=== PATIENT | male | born 1970 | race Caucasian/White ===

== ENCOUNTER 2017-01-14 10:43 | Day surgery (SDC) | payer OTHER ==
[~2017-01-14] VITALS: Ht 177.8 cm; Wt 103.0 kg
[~2017-01-14 10:43] MED LIST: IV RINGERS,LACTATED 1000ML 1,000 ML IV SCH; LIDOCAINE 1% PF 2 ML VIAL. ID PRN; ONDANSETRON PF 4 MG/2 ML VIAL. IV PRN; PROCHLORPERAZINE 10 MG/2 ML VIAL. IV PRN; fentaNYL PF VIAL 100 MCG/2 ML VIAL IV PRN
[2017-01-14] MEDS ORDERED: LOSA50TA6 PO (11:01)
[2017-01-14] MEDS ORDERED: ATOR40TA PO (11:02)
[2017-01-14] MEDS ORDERED: ONDANSETRON PF 4 MG/2 ML VIAL. ONE (11:29)
[2017-01-14] MEDS ORDERED: LIDOCAINE 2% PF Vial for OR 5 ML VIAL. ONE (11:29)
[2017-01-14] MEDS ORDERED: DEXAMETHASONE SOD PHOS 20 MG/5 ML VIAL. ONE (11:29)
[2017-01-14] MEDS ORDERED: PROPOFOL 20 ML IV ONE (11:29)
[2017-01-14] MEDS ORDERED: MIDAZOLAM HCL/PF 2 MG/2 ML VIAL. ONE (11:30)
[2017-01-14] MEDS ORDERED: fentaNYL PF VIAL 250 MCG/5 ML VIAL ONE (11:30)
[2017-01-14] MEDS ORDERED: BUPIVACAINE-EPI 0.25%-1:200000 MPF 30 ML VIAL. ONE (12:09)
[2017-01-14] MEDS ORDERED: NEOSTIGMINE METHYLSULFATE 5 MG/5 ML SYRINGE. ONE (13:43)
[2017-01-14] MEDS ORDERED: GLYCOPYRROLATE 1 MG/5 ML VIAL. ONE (13:44)
[2017-01-14] MEDS ORDERED: ROCURONIUM 100 MG/10 ML VIAL. ONE (14:17)
--- NOTE | 2017-01-14 14:36 | PDOC4 ---
Operative Note Operative Note Date: 01/14/2017 Preoperative diagnosis: Incarcerated umbilical hernia Postoperative diagnosis: Same Procedure: Robotic-assisted laparoscopic umbilical hernia repair with mesh Surgeon: Nacho Specimen: None Dictation: Patient is a 46-year-old male who's had increasingly enlarging umbilical hernia with pain procedure of robotic-assisted laparoscopic umbilical hernia repair with mesh was explained to the patient detail was benefits were also discussed including bleeding infection injury to intra-abdominal contents possibly necessitating further or open operations. Alternatives to this procedure also discussed with the patient seemed understanding gave both verbal and written consent to have the procedure performed. Patient was taken to the operating room placed in the supine position general anesthesia was initiated once patient was asleep and intubated his abdomen was prepped and draped in usual sterile fashion using ChloraPrep and area in the left upper quadrant was injected with quarter percent Marcaine with epinephrine incisions made lead blade scalpel and a 5 mm Visiport was placed under direct visualization into the abdomen and a pneumoperitoneum was achieved. 5mm camera was placed within the abdomen and was inspected showing a umbilical hernia with incarcerated omentum. 8 mm port were placed in the left lower abdomen and left mid abdomen the fibromata Visiport was changed out for an 8 mm da Deshawn port at this point the da Deshawn robot was brought in and docked all ports. Surgeon went to the robotic console using Endo shear and grasper the omentum was reduced from the hernia defect. Hernia defect was then closed with a running 2-0 nonabsorbable V lock suture the defect was then covered with ventral light ST mesh which was sewn into place with a running 2-0 the lock absorbable suture. Once this was complete the pneumoperitoneum reduced all ports were removed the da Deshanw robot was undocked the skin incisions were closed with 4-0 subcuticular Monocryl. Mastisol Steri-Strips and island dressings were applied. Patient was awakened and extubated in the operating room taken to recovery in stable condition all sponge instrument and needle counts listed as correct estimated blood loss 10 mL RE BRADY MD Jan 14, 2017 14:36
--- NOTE | 2017-01-14 14:37 | DISCH ---
DISCHARGE INSTRUCTIONS Condition on Discharge Condition on Discharge: Stable Activity After Discharge Activity Instructions for Disc: Avoid exertion Other activity instructions: No lifting>20lbs for 2 weeks Diet after Discharge Diet after Discharge: Regular Wound Incision Care Other wound/incision instructi: May shower in 24 hours Contacting the after DC Call your doctor for: If your condition worsens Follow-Up Follow up with: Dr Brady in 2 weeks RE BRADY MD Jan 14, 2017 14:37
[2017-01-14] MEDS ORDERED: SEVOFLURANE 61 TO 120 MINUTES. IH ONE (14:38)
[2017-01-14] MEDS ORDERED: SEVOFLURANE 31 TO 60 MINUTES. IH ONE (14:38)
[2017-01-14] MEDS ORDERED: fentaNYL PF VIAL 100 MCG/2 ML VIAL ONE (14:54)
[2017-01-14] MEDS: fentaNYL PF VIAL 100 MCG/2 ML VIAL IV PRN ×2 (14:55→15:03)
[2017-01-14] MEDS ORDERED: MORPHINE SULFATE 2 MG/ML DISP.SYRIN. ONE (15:15)
[2017-01-14] MEDS: MORPHINE SULFATE 2 MG/ML DISP.SYRIN. IV PRN ×2 (15:16→15:31)
[2017-01-14] MEDS ORDERED: HYDROmorphone 2 MG/ML VIAL ONE (15:32)
[2017-01-14] MEDS: HYDROmorphone 2 MG/ML VIAL IV PRN ×4 (15:38→16:22)
[2017-01-14] MEDS ORDERED: OXYC-323 PO (16:02)
[2017-01-14] MEDS ORDERED: oxyCODONE/APAP 5/325 1 TAB TABLET PO ONE (16:30)
[2017-01-14 16:55] VITALS: BP 120/55
== END 2017-01-14 17:35 | disposition home or self-care (01) ==
LOC: SURG 10:43
PROVIDERS: ATTEND Surgery
DX: K42.0 Umbilical hernia with obstruction, without gangrene (principal); I10 Essential (primary) hypertension; E78.00 Pure hypercholesterolemia, unspecified; Z79.899 Other long term (current) drug therapy; Z87.891 Personal history of nicotine dependence; Z98.890 Other specified postprocedural states; Z88.8 Allergy status to other drugs, medicaments and biological substances
CPT/HCPCS: 49653; C1781; J0690; J0780; J1100; J1170; J2250; J2270; J2405; J2704; J2710; J3010; J3490; J2001